=== PATIENT | male | born 1960 | race Caucasian/White ===

== ENCOUNTER → 2016-11-21 | Outpatient (CLI) | payer OTHER | END | disposition home or self-care (01) | LOC: GMAH 14:39 | PROVIDERS: ATTEND Family Medicine | DX: G60.8 Other hereditary and idiopathic neuropathies (principal) ==

== ENCOUNTER → 2017-11-27 | Outpatient (CLI) | payer OTHER | LOC: GMAH 11:04 | PROVIDERS: ATTEND Family Medicine | DX: E03.9 Hypothyroidism, unspecified (principal); E53.8 Deficiency of other specified B group vitamins ==

== ENCOUNTER → 2018-05-28 | Outpatient (CLI) | payer OTHER | LOC: GMAH 12:06 | PROVIDERS: ATTEND Family Medicine | DX: Z00.01 Encounter for general adult medical examination with abnormal findings (principal); Z12.5 Encounter for screening for malignant neoplasm of prostate ==

== ENCOUNTER → 2019-05-27 | Outpatient (CLI) | payer OTHER | LOC: GMA MATASK 11:34 | PROVIDERS: ATTEND Family Medicine | DX: R68.82 Decreased libido (principal); I10 Essential (primary) hypertension ==

== ENCOUNTER → 2019-12-05 | Outpatient (CLI) | payer OTHER | LOC: GMA MATASK 11:11 | PROVIDERS: ATTEND Family Medicine | DX: E03.9 Hypothyroidism, unspecified (principal); I10 Essential (primary) hypertension ==

== ENCOUNTER → 2020-05-25 | Outpatient (CLI) | payer OTHER | LOC: GMA MATASK 10:46 | PROVIDERS: ATTEND Family Medicine | DX: E03.9 Hypothyroidism, unspecified (principal); I10 Essential (primary) hypertension ==